=== PATIENT | male | born 1950 | race Caucasian/White ===

== ENCOUNTER 2020-10-23 17:25 | Inpatient (IN) ==
[2020-10-23] MEDS ORDERED: Ipratropium/Albuterol Neb 3 ML IH ONE (17:46)
[2020-10-23] MEDS ORDERED: methylPREDNISolone 125 MG/2 ML VIAL IVP ONE (17:47)
[2020-10-23 18:21] LABS: Basophils % 0.2 %; Eosinophils # 0.1 K/mcL (0.0-0.6); Eosinophils % 1.5 %; Hematocrit 39.7 % (37.5-50.1); Hemoglobin 13.1 g/dL (12.9-16.9); Immature Granulocytes % 0.3 % (0-4); Lymphocytes # 1.5 K/mcL (0.6-4.6); Lymphocytes % 23.1 %; Mean Corpuscular Hemoglobin 29.2 pg (28.0-33.3); Mean Corpuscular Volume 88.6 fL (83.0-100.0); Mean Platelet Volume 8.8 fL (9.4-12.4); Monocytes # 0.4 K/mcL (0.0-1.3); Monocytes % 5.5 %; Neutrophils # 4.6 K/mcL (1.6-8.9); Platelet Count 231 K/mcL (140-400); Red Blood Count 4.48 M/mcL (4.19-5.50); Red Cell Distribution Width 13.8 % (11.5-14.5); Segmented Neutrophils % 69.4 %; White Blood Count 6.6 K/mcL (4.3-11.1)
[2020-10-23 18:27] LABS: Bilirubin,Urine Negative (Negative); Blood,Urine Negative (Negative); Clarity,Urine Clear (Clear); Color,Urine Light-Yellow (Yellow); Glucose,Urine (UA) Normal (Normal); Ketones,Urine Negative (Negative); Leukocyte Esterase,Urine Negative (Negative); Nitrite,Urine Negative (Negative); PH,Urine 7.5 pH Units (5.0-8.0); Protein,Urine Negative (Neg-Trace); Specific Gravity,Urine 1.022 (1.010-1.025)
[2020-10-23 18:42] LABS: Alanine Aminotransferase 24 Units/L (7-52); Albumin 3.6 g/dL (3.5-5.7); Albumin/Globulin Ratio 1.4 (1.1-2.2); Alkaline Phosphatase 63 Units/L (34-104); Aspartate Amino Transferase 21 Units/L (13-39); BUN/Creatinine Ratio 14 (6-26); Bilirubin,Direct 0.1 mg/dL (0.0-0.2); Bilirubin,Indirect 0.6 mg/dL (0.0-1.0); Bilirubin,Total 0.7 mg/dL (0.3-1.0); Blood Urea Nitrogen 15 mg/dL (8-23); Calcium 8.8 mg/dL (8.6-10.3); Carbon Dioxide 33 mEq/L (23-29); Chloride 97 mEq/L (98-107); Globulin 2.6 g/dL (2.4-3.5); Glucose 126 mg/dL (70-105); Osmolality,Calculated 286 (280-300); Potassium 3.2 mEq/L (3.5-5.1); Sodium 137 mEq/L (136-145); Total Protein 6.2 g/dL (6.4-8.9); eGFR For African Americans > 60 (> 60); eGFR For Non-African Americans > 60 (> 60)
[2020-10-23 18:44] LABS: Troponin I < 0.03 ng/mL (< 0.04)
[2020-10-23] MEDS ORDERED: Azithromycin 500 MG in 0.9 % Sodium Chloride 250 ML IVPB ONE (19:36)
[2020-10-23] MEDS ORDERED: cefTRIAXone 1,000 MG in Water for inj. (sterile) 10 ML IVP ONE (19:36)
[2020-10-23] MEDS ORDERED: Acetaminophen 325 MG TABLET PO PRN (20:49)
[2020-10-23] MEDS ORDERED: Ondansetron ODT 4 MG TAB.RAPDIS SL PRN (20:49)
[2020-10-23] MEDS ORDERED: Naloxone 0.4 MG/ML INJ IVP PRN (20:49)
[2020-10-23 21:33] LABS: Influenza A PCR Negative (Negative); Influenza B PCR Negative (Negative); Resp. Syncytial Virus PCR Negative (Negative)
[2020-10-23 22:08] LABS: SARS-CoV-2 by PCR (In House) Negative (Negative)
[2020-10-23] MEDS: Pantoprazole 40 MG VIAL IVP SCH (22:14)
[2020-10-24] MEDS: MethylPREDNISolone 40 MG/ML VIAL IVP SCH ×3 (02:19→17:33)
[2020-10-24 02:32] LABS: Bilirubin,Urine Negative (Negative); Blood,Urine Negative (Negative); Clarity,Urine Clear (Clear); Color,Urine Colorless (Yellow); Glucose,Urine (UA) >=1000 mg/dL (Normal); Ketones,Urine Negative (Negative); Leukocyte Esterase,Urine Negative (Negative); Nitrite,Urine Negative (Negative); Protein,Urine Negative (Neg-Trace); RBC,Urine 0-3 per hpf (0-3); Specific Gravity,Urine 1.014 (1.010-1.025); Squamous Epithelial Cell,Urine Few per hpf (None-Few); Urobilinogen,Urine Normal (Normal); WBC,Urine 0-3 per hpf (0-3)
[2020-10-24] MEDS: Pantoprazole 40 MG VIAL IVP SCH (05:53)
[2020-10-24] MEDS: *HR* Enoxaparin 40 MG/0.4 ML SYRINGE SQ SCH (05:54)
[2020-10-24 08:47] LABS: INR 1.2; Prothrombin Time 13.5 Seconds (9.4-12.1)
[2020-10-24 08:53] LABS: Basophils % 0.2 %; Hematocrit 43.9 % (37.5-50.1); Hemoglobin 14.3 g/dL (12.9-16.9); Immature Granulocytes % 0.2 % (0-4); Lymphocytes # 0.7 K/mcL (0.6-4.6); Lymphocytes % 11.8 %; Mean Corpuscular HGB Conc 32.6 g/dL (31.6-35.5); Mean Corpuscular Hemoglobin 29.5 pg (28.0-33.3); Mean Corpuscular Volume 90.5 fL (83.0-100.0); Monocytes % 0.6 %; Neutrophils # 5.5 K/mcL (1.6-8.9); Platelet Count 253 K/mcL (140-400); Red Blood Count 4.85 M/mcL (4.19-5.50); Red Cell Distribution Width 13.8 % (11.5-14.5); Segmented Neutrophils % 87.2 %; White Blood Count 6.3 K/mcL (4.3-11.1)
[2020-10-24] MEDS ORDERED: cefTRIAXone 1,000 MG in 0.9 % Sodium Chloride Mini Bag 100 ML IVPB SCH (09:00)
[2020-10-24 09:04] LABS: BUN/Creatinine Ratio 17 (6-26); Blood Urea Nitrogen 14 mg/dL (8-23); Calcium 9.5 mg/dL (8.6-10.3); Carbon Dioxide 32 mEq/L (23-29); Chloride 98 mEq/L (98-107); Glucose 163 mg/dL (70-105); Magnesium 1.9 mg/dL (1.6-2.6); Osmolality,Calculated 288 (280-300); Potassium 3.9 mEq/L (3.5-5.1); Sodium 137 mEq/L (136-145); eGFR For African Americans > 60 (> 60); eGFR For Non-African Americans > 60 (> 60)
[2020-10-24] MEDS: Azithromycin 500 MG in 0.9 % Sodium Chloride 250 ML IVPB SCH (10:00)
[2020-10-24] MEDS: Ipratropium/Albuterol Neb 3 ML IH PRN ×4 (12:01→23:03)
[2020-10-24] MEDS ORDERED: Nicotine 21 MG PATCH.TD24 TD STA (14:10)
[2020-10-24] MEDS ORDERED: *HR* LORazepam 1 MG TABLET PO PRN (15:49)
[2020-10-24] MEDS ORDERED: *HR* HYDROcodone/Acet 10/325 mg TABLET PO PRN (15:49)
[2020-10-24] MEDS: Budesonide/Formoterol 160/4.5 1 PUFF INH IH SCH (20:18)
[2020-10-25] MEDS: MethylPREDNISolone 40 MG/ML VIAL IVP SCH (02:22)
[2020-10-25] MEDS: *HR* Enoxaparin 40 MG/0.4 ML SYRINGE SQ SCH (05:57)
[2020-10-25] MEDS: Pantoprazole 40 MG VIAL IVP SCH (05:57)
[2020-10-25 07:26] VITALS: BP 120/62
[2020-10-25] MEDS: Azithromycin 500 MG in 0.9 % Sodium Chloride 250 ML IVPB SCH (07:35)
[2020-10-25] MEDS: Ipratropium/Albuterol Neb 3 ML IH PRN (08:20)
[2020-10-25] MEDS: Budesonide/Formoterol 160/4.5 1 PUFF INH IH SCH (08:22)
[2020-10-25] MEDS ORDERED: Isosorbide MONOnitrate (24 HR) 30 MG TAB.ER.24H PO SCH (09:00)
[2020-10-25] MEDS ORDERED: Aspirin Enteric Coated 81 MG Tablet PO SCH (09:00)
[2020-10-25] MEDS ORDERED: hydroCHLOROthiazide 25 MG TABLET PO SCH (09:00)
== END 2020-10-25 11:38 | disposition home or self-care (01) | DRG 190 ==
LOC: EMEROOARM 17:25 → CDU 17:25 → SUATTDRO 10-24 16:12
PROVIDERS: ADMIT Student in an Organized Health Care Education/Training Program; ATTEND Internal Medicine